=== PATIENT | female | born 1985 | race Caucasian/White ===

== ENCOUNTER 2023-07-22 16:10 | Outpatient (CLI) | payer BC | END 2023-07-22 16:11 | disposition home or self-care (01) | LOC: CSHLAB 16:10 | PROVIDERS: ATTEND Student in an Organized Health Care Education/Training Program | DX: Z01.818 Encounter for other preprocedural examination (principal) | CPT/HCPCS: 80048; 84703; 85027; 86850; 86900; 86901; 93005; 93010 ==

== ENCOUNTER 2023-07-24 06:03 | Day surgery (SDC) | payer BC ==
[2023-07-22 16:43] VITALS: BMI 21.5
[2023-07-22 17:08] LABS: Hematocrit 39.6 % (34.9-44.5); Hemoglobin 13.2 g/dL (12.0-15.5); Mean Corpuscular HGB CONC 33.3 g/dL (32.0-36.0); Mean Platelet Volume 11.8 fl (7.4-10.4); Platelet Count 200 10x3/uL (150-450); RBC Distribution Width 12.1 % (11.5-14.5); Red Blood Cell (RBC) Count 4.55 10x6/uL (3.90-5.03); White Blood Cell (WBC) Count 7.4 10x3/uL (3.5-10.5)
[2023-07-22 17:30] LABS: BHCG - Serum Negative (NEGATIVE); Pregs Control Background? CLEAR/WHITE (CLR/WHITE); Pregs Control Bar Appear? YES (CONTROL BAR)
[2023-07-22 17:32] LABS: Anion Gap 15 mmol/L (10-20); BUN (Urea Nitrogen) 7 mg/dL (7.0-18.7); Calc. Creatinine Clearance 0 mL/min (70-130); Carbon Dioxide 25 mmol/L (22-29); Chloride 104 mmol/L (98-107); Estimated GFR 90; Glucose 132 mg/dL (70-105); Potassium 3.4 mmol/L (3.5-5.1); Sodium 141 mmol/L (136-145)
[2023-07-24] MEDS ORDERED: Gabapentin 300 MG CAP ONE (06:22)
[2023-07-24] MEDS ORDERED: CeleCOXIB 100 MG CAP ONE (06:23)
[2023-07-24] MEDS ORDERED: Famotidine/PF 20 mg/2ml Vial ONE (06:23)
[2023-07-24] MEDS ORDERED: Bupivacaine PF 0.5% 30 ML VIAL ONE (06:26)
[2023-07-24] MEDS ORDERED: EPINEPHrine 1 MG/ML VIAL ONE (06:26)
[2023-07-24] MEDS ORDERED: Ondansetron PF 4 MG/2 ML Vial ONE (06:49)
[2023-07-24] MEDS ORDERED: PROPOFOL 20 ML ONE (06:49)
[2023-07-24] MEDS ORDERED: Fentanyl 250 MCG/5 ML VIAL ONE (06:49)
[2023-07-24] MEDS ORDERED: Dexamethasone 4 mg/ml Vial ONE (06:49)
[2023-07-24] MEDS ORDERED: Rocuronium Bromide 10 MG/ML (10ML VIAL) ONE (06:49)
[2023-07-24] MEDS ORDERED: Lidocaine 1% PF 5 ML VIAL ONE (06:49)
[2023-07-24] MEDS ORDERED: CEFAZOLIN 2 GM VIAL ONE (07:22)
[2023-07-24] MEDS ORDERED: Dexmedetomidine 200 MCG/2 ML VIAL ONE (07:54)
[2023-07-24] MEDS ORDERED: Glycopyrrolate 0.2 MG/ML 5 ML SYRINGE ONE (08:32)
[2023-07-24] MEDS ORDERED: Meperidine HCl/PF 25 MG/ML VIAL ONE (09:43)
[2023-07-24] MEDS ORDERED: Ketorolac Tromethamine 30 MG/ML VIAL ONE (09:56)
== END 2023-07-24 12:10 | disposition home or self-care (01) ==
LOC: CSHSDC 06:03
PROVIDERS: ATTEND Student in an Organized Health Care Education/Training Program
PROC: 0UT94ZZ Resection of Uterus, Percutaneous Endoscopic Approach (ICD-10-PCS; principal; 2023-07-24)
PROC: 0UB74ZZ Excision of Bilateral Fallopian Tubes, Percutaneous Endoscopic Approach (ICD-10-PCS; principal; 2023-07-24)
DX: D25.9 Leiomyoma of uterus, unspecified (principal); N93.9 Abnormal uterine and vaginal bleeding, unspecified; N73.6 Female pelvic peritoneal adhesions (postinfective)
CPT/HCPCS: 80048; 84703; 85027; 86850; 86900; 86901; 88307; C1889; J0171; J1100; J1885; J2175; J2405; J2704; J3010; S0020; S0028